=== PATIENT | female | born 1970 | race Caucasian/White ===

== ENCOUNTER 2016-10-13 16:47 | Emergency (ER) | payer OTHER ==
[~2016-10-13] VITALS: Ht 157.5 cm; Wt 70.8 kg
[~2016-10-13 16:47] MED LIST: LOSARTAN POTASS50 MG PO; METFORMIN HCL500 MG PO; MULTIPLE VITAM1 EACH PO; SPIRONOLACTONE25 MG PO; SYNTHROID25 MCG PO; WELLBUTRIN XL300 MG PO
[2016-10-13 17:59] LABS: HEMATOCRIT 44.5 % (36.0-46.0); MCH 30.3 PG (29.0-34.0); MCHC 34.6 G/DL (30.0-36.0); MCV 87.6 FL (83-99); MEAN PLAT.VOLUME 9.6 uM^3 (9.5-12.4); PLATELET COUNT 372 K/uL (156-360); RBC DIS.WIDTH-CV 13.2 % (11.8-14.6); RBC DIS.WIDTH-SD 41.2 % (39-53); RED BLOOD COUNT 5.08 M/uL (3.80-5.20); WHITE BLOOD COUNT 11.2 K/uL (4.1-10.2)
[2016-10-13 18:13] LABS: CHLORIDE 104 mEq/L (99-109); POTASSIUM 3.9 mEq/L (3.7-5.4)
[2016-10-13 18:14] LABS: SODIUM 139 mEq/L (136-147)
[2016-10-13 18:15] LABS: GLUCOSE 107 mg/dL (70-99)
[2016-10-13 18:17] LABS: ANION GAP 14 MEQ/L (2-14)
[2016-10-13 18:19] LABS: GFR ESTIMATE (CALCULATED) > 59 mL/min/
[2016-10-13 18:20] LABS: UREA NITROGEN (BUN) 8 mg/dL (9-23)
[2016-10-13 18:23] LABS: TROP-I INTERPRETATION NEGATIVE; TROPONIN-I < 0.01 ng/mL (0.0-0.30)
[2016-10-14 02:16] LABS: TROP-I INTERPRETATION NEGATIVE; TROPONIN-I < 0.01 ng/mL (0.0-0.30)
[2016-10-14] MEDS ORDERED: FIORICET 50-301 EACH PO (08:29)
[2016-10-14] MEDS ORDERED: VITAMIN D400 UNIT PO (08:30)
[2016-10-14] MEDS ORDERED: FLEXERIL5 MG PO (08:31)
[2016-10-14] MEDS ORDERED: NEXIUM40 MG PO (08:31)
[2016-10-14] MEDS ORDERED: CYMBALTA60 MG PO (08:31)
[2016-10-14] MEDS ORDERED: INDERAL10 MG PO (08:32)
[2016-10-14 10:12] LABS: D-DIMER ELISA < 0.15 mg/L FEU (< 0.57)
[2016-10-14 10:19] LABS: TROP-I INTERPRETATION NEGATIVE; TROPONIN-I < 0.01 ng/mL (0.0-0.30)
[2016-10-14 14:10] VITALS: BP 124/87
== END 2016-10-14 14:12 | disposition home or self-care (01) ==
LOC: EME 16:47
PROVIDERS: Nurse Practitioner Family; Personal Emergency Response Attendant
DX: R07.89 Other chest pain (principal); M25.511 Pain in right shoulder; G43.909 Migraine, unspecified, not intractable, without status migrainosus; I10 Essential (primary) hypertension; E11.9 Type 2 diabetes mellitus without complications; E03.9 Hypothyroidism, unspecified; Z79.84 Long term (current) use of oral hypoglycemic drugs; Z87.891 Personal history of nicotine dependence
CPT/HCPCS: 71020; 71275; 80048; 84484; 85027; 85379; 93005; 99281; 99285; J7030

== ENCOUNTER → 2016-11-05 | Outpatient (CLI) | payer OTHER ==
[~2016-11-05] MED LIST changes: +CYMBALTA60 MG PO; +FIORICET 50-301 EACH PO; +FLEXERIL5 MG PO; +INDERAL10 MG PO; +NEXIUM40 MG PO; +VITAMIN D400 UNIT PO
== END | disposition home or self-care (01) ==
LOC: NUC 11-01 07:30
DX: R94.8 Abnormal results of function studies of other organs and systems (principal); R10.11 Right upper quadrant pain; R11.0 Nausea
CPT/HCPCS: 78264; A9541